=== PATIENT | male | born 1985 | race Asian ===

== ENCOUNTER 2020-04-17 16:51 | Emergency (ER) | payer OTHER ==
[~2020-04-17] VITALS: Ht 180.3 cm; Wt 79.4 kg
[2020-04-17 16:54] VITALS: Ht 180.3 cm; Wt 79.4 kg
[2020-04-17 17:47] LABS: BASOPHIL % 0.4 % (0.2-1.5); PLATELET COUNT 373 x10^3mcL (152-348); RED CELL DISTRIBUTION WIDTH 14.3 % (12.1-16.2)
[2020-04-17 18:17] LABS: CARBON DIOXIDE 20.1 mmol/L (21-32); CHLORIDE SERUM 101 mmol/L (98-107); CREATININE SERUM 1.2 mg/dL (0.7-1.3); GFR1 > 60 mL/min; GLUCOSE SERUM 96 mg/dL (74-106); POTASSIUM SERUM 3.9 mmol/L (3.5-5.1); SODIUM SERUM 137 mmol/L (136-145)
[2020-04-17 18:21] LABS: ALBUMIN 4.3 g/dL (3.4-5.0); ALKALINE PHOSPHATASE 64 U/L (46-116); ALT/SGPT 56 U/L (16-63); AST/SGOT 26 U/L (15-37); BILIRUBIN TOTAL 0.5 mg/dL (0.20-1.00); TOTAL PROTEIN, SERUM 7.8 g/dL (6.4-8.2)
[2020-04-17] MEDS ORDERED: KEPPRA500 MG PO (20:13)
[2020-04-17] MEDS ORDERED: IBU600 M2 PO (20:13)
[2020-04-17 20:44] VITALS: BP 120/75
== END 2020-04-17 21:00 | disposition home or self-care (01) ==
LOC: ED 16:51
PROVIDERS: Emergency Medicine
DX: G40.909 Epilepsy, unspecified, not intractable, without status epilepticus (principal); Z88.8 Allergy status to other drugs, medicaments and biological substances; Z98.890 Other specified postprocedural states
CPT/HCPCS: J1885; J1953; J7030